=== PATIENT | female | born 1955 | race Caucasian/White ===

== ENCOUNTER → 2017-05-12 | Outpatient (CLI) | payer OTHER ==
[2017-05-13 10:24] LABS: BASOPHIL % 0.4 % (0-2); PLATELET COUNT 251 x10^3mcL (130-400)
[2017-05-13 10:45] LABS: ALBUMIN 3.5 g/dL (3.4-5.0); ALKALINE PHOSPHATASE 75 U/L (46-116); ALT/SGPT 31 U/L (14-59); AST/SGOT 24 U/L (15-37); BILIRUBIN TOTAL 0.47 mg/dL (0.20-1.00); CALCIUM 8.7 mg/dL (8.5-10.1); CARBON DIOXIDE 29.6 mmol/L (21-32); CHLORIDE SERUM 106 mmol/L (98-107); CREATININE SERUM 0.8 mg/dL (0.6-1.0); GFR1 > 60 mL/min; GLUCOSE SERUM 96 mg/dL (74-106); POTASSIUM SERUM 4.4 mmol/L (3.5-5.1); SODIUM SERUM 142 mmol/L (136-145); TOTAL PROTEIN, SERUM 7.5 g/dL (6.4-8.2); TRIGLYCERIDES 131 mg/dL (<150)
[2017-05-13 10:46] LABS: CHOLESTEROL 230 mg/dL (<200); CHOLESTEROL/HDL RATIO 3.8; HDL CHOLESTEROL 61 mg/dL (40-60)
== END | disposition home or self-care (01) ==
LOC: MA 12:41
PROVIDERS: Internal Medicine
PROC: BH02ZZZ Plain Radiography of Bilateral Breasts (ICD-10-PCS; principal; 2017-05-12)
DX: Z00.00 Encounter for general adult medical examination without abnormal findings (principal); Z12.31 Encounter for screening mammogram for malignant neoplasm of breast
CPT/HCPCS: G0202

== ENCOUNTER → 2017-06-17 | Outpatient (CLI) | payer OTHER | END | disposition home or self-care (01) | LOC: MA 12:54 | PROC: BH02ZZZ Plain Radiography of Bilateral Breasts (ICD-10-PCS; principal; 2017-06-17) | DX: R92.8 Other abnormal and inconclusive findings on diagnostic imaging of breast (principal) | CPT/HCPCS: G0206 ==

== ENCOUNTER 2017-07-18 06:30 | Day surgery (SDC) | payer OTHER ==
[~2017-07-18] VITALS: Ht 152.4 cm; Wt 59.9 kg
[2017-07-18 06:43] VITALS: BP 150/87
[2017-07-18 10:07] VITALS: BP 101/60
== END 2017-07-18 10:30 | disposition home or self-care (01) ==
LOC: GI 06:30 → OR 07:30 → GI 10:30
PROVIDERS: Internal Medicine Gastroenterology
PROC: 0DB58ZZ Excision of Esophagus, Via Natural or Artificial Opening Endoscopic (ICD-10-PCS; principal; 2017-07-18 07:30)
PROC: 0DB68ZX Excision of Stomach, Via Natural or Artificial Opening Endoscopic, Diagnostic (ICD-10-PCS; 2017-07-18 07:30)
PROC: 0DBH8ZZ Excision of Cecum, Via Natural or Artificial Opening Endoscopic (ICD-10-PCS; 2017-07-18 07:30)
DX: K21.0 Gastro-esophageal reflux disease with esophagitis (principal); K22.2 Esophageal obstruction; K44.9 Diaphragmatic hernia without obstruction or gangrene; R13.10 Dysphagia, unspecified; K25.4 Chronic or unspecified gastric ulcer with hemorrhage; K63.5 Polyp of colon; K64.8 Other hemorrhoids; Z68.25 Body mass index [BMI] 25.0-25.9, adult; Z12.11 Encounter for screening for malignant neoplasm of colon; Z80.0 Family history of malignant neoplasm of digestive organs
CPT/HCPCS: 43235; 45378; J1200; J1610; J2250; J2310; J3010; J3490

== ENCOUNTER 2018-03-06 08:37 | Emergency (ER) | payer OTHER ==
[~2018-03-06] VITALS: Ht 152.4 cm; Wt 59.6 kg
[2018-03-06 08:40] VITALS: Ht 152.4 cm; Wt 59.6 kg
[2018-03-06 09:13] LABS: BASOPHIL % 0.6 % (0-2); PLATELET COUNT 254 x10^3mcL (130-400); RED CELL DISTRIBUTION WIDTH 12.8 % (11.5-14.5)
[2018-03-06 09:24] LABS: CALCIUM 9.1 mg/dL (8.5-10.1); CARBON DIOXIDE 28.6 mmol/L (21-32); CHLORIDE SERUM 105 mmol/L (98-107); CREATININE SERUM 0.9 mg/dL (0.6-1.0); GFR1 > 60 mL/min; GLUCOSE SERUM 107 mg/dL (74-106); POTASSIUM SERUM 3.7 mmol/L (3.5-5.1); SODIUM SERUM 139 mmol/L (136-145)
[2018-03-06 09:29] LABS: ALBUMIN 3.6 g/dL (3.4-5.0); ALKALINE PHOSPHATASE 82 U/L (46-116); ALT/SGPT 33 U/L (14-59); AMYLASE 48 U/L (25-115); AST/SGOT 24 U/L (15-37); BILIRUBIN TOTAL 0.5 mg/dL (0.20-1.00); LIPASE 112 IU/L (73-393); TOTAL PROTEIN, SERUM 7.5 g/dL (6.4-8.2)
[2018-03-06 13:02] VITALS: BP 141/59
[2018-03-07] MEDS ORDERED: OMEPRAZOLE40 M1 PO (19:43)
[2018-03-07] MEDS ORDERED: ZOF4 PO (19:43)
[2018-03-07] MEDS ORDERED: EPZICOM1 TAB (19:43)
== END 2018-03-06 13:48 | disposition home or self-care (01) ==
LOC: ED 08:37
PROVIDERS: Specialist
DX: R10.11 Right upper quadrant pain (principal); R10.12 Left upper quadrant pain; K44.9 Diaphragmatic hernia without obstruction or gangrene; K21.9 Gastro-esophageal reflux disease without esophagitis
CPT/HCPCS: 36415; 83880; J7030; Q0092; Q0162; Q9967

== ENCOUNTER 2018-03-07 17:28 | Inpatient (IN) | payer OTHER ==
[~2018-03-07] VITALS: Ht 152.4 cm; Wt 60.4 kg
[2018-03-07 18:59] LABS: BASOPHIL % 0.3 % (0-2); PLATELET COUNT 263 x10^3mcL (130-400); RED CELL DISTRIBUTION WIDTH 12.9 % (11.5-14.5)
[2018-03-07 19:12] LABS: CARBON DIOXIDE 26.6 mmol/L (21-32); CHLORIDE SERUM 102 mmol/L (98-107); CREATININE SERUM 0.9 mg/dL (0.6-1.0); GFR1 > 60 mL/min; GLUCOSE SERUM 123 mg/dL (74-106); POTASSIUM SERUM 4.3 mmol/L (3.5-5.1); SODIUM SERUM 139 mmol/L (136-145)
[2018-03-07 19:17] LABS: ALBUMIN 3.5 g/dL (3.4-5.0); ALKALINE PHOSPHATASE 73 U/L (46-116); ALT/SGPT 27 U/L (14-59); AMYLASE 41 U/L (25-115); AST/SGOT 19 U/L (15-37); BILIRUBIN TOTAL 0.77 mg/dL (0.20-1.00); LIPASE 108 IU/L (73-393); TOTAL PROTEIN, SERUM 7.4 g/dL (6.4-8.2)
[2018-03-07] MEDS ORDERED: OMEPRAZOLE40 M1 PO (19:43)
[2018-03-07] MEDS ORDERED: ZOF4 PO (19:43)
[2018-03-07] MEDS ORDERED: EPZICOM1 TAB (19:43)
[2018-03-07 20:44] LABS: MAGNESIUM 2.7 mg/dL (1.8-2.4); PHOSPHOROUS 3.5 mg/dL (2.5-4.9)
[2018-03-07 20:52] LABS: CHOLESTEROL/HDL RATIO 3.8
[2018-03-07 21:10] LABS: FREE T4 0.75 ng/dL (0.76-1.46); FREE THYROXINE INDEX 1.7 ug/dL (1.4-4.5); T4(THYROXINE) 5.7 ug/dL (4.7-13.3)
[2018-03-07 21:20] VITALS: BP 131/74
[2018-03-08 00:06] LABS: microscopic required? YES; urine erythrocyte TRACE (NEGATIVE)
[2018-03-08 06:09] VITALS: BP 159/86
[2018-03-08 06:35] LABS: CALCIUM 7.8 mg/dL (8.5-10.1); CARBON DIOXIDE 25.5 mmol/L (21-32); CHLORIDE SERUM 106 mmol/L (98-107); CREATININE SERUM 0.7 mg/dL (0.6-1.0); GFR1 > 60 mL/min; GLUCOSE SERUM 97 mg/dL (74-106); MAGNESIUM 2.5 mg/dL (1.8-2.4); PHOSPHOROUS 3.4 mg/dL (2.5-4.9); POTASSIUM SERUM 3.8 mmol/L (3.5-5.1); SODIUM SERUM 138 mmol/L (136-145)
[2018-03-08 06:37] LABS: BASOPHIL % 0.1 % (0-2); PLATELET COUNT 224 x10^3mcL (130-400); RED CELL DISTRIBUTION WIDTH 13.1 % (11.5-14.5)
[2018-03-08 06:47] VITALS: BP 136/79
[2018-03-08 09:00] VITALS: BP 136/71
[2018-03-08 17:38] VITALS: BP 132/68
[2018-03-08 20:36] VITALS: BP 147/75
[2018-03-08 23:22] LABS: T3 TOTAL 0.88 ng/mL
[2018-03-09 06:31] LABS: CALCIUM 8.1 mg/dL (8.5-10.1); CARBON DIOXIDE 23.1 mmol/L (21-32); CHLORIDE SERUM 108 mmol/L (98-107); CREATININE SERUM 0.7 mg/dL (0.6-1.0); GLUCOSE SERUM 77 mg/dL (74-106); POTASSIUM SERUM 3.6 mmol/L (3.5-5.1); SODIUM SERUM 141 mmol/L (136-145)
[2018-03-09 06:40] LABS: BASOPHIL % 0.1 % (0-2); PLATELET COUNT 216 x10^3mcL (130-400); RED CELL DISTRIBUTION WIDTH 12.9 % (11.5-14.5)
[2018-03-09 09:14] VITALS: BP 133/72
[2018-03-09 13:15] VITALS: BP 126/65
[2018-03-09 17:33] VITALS: BP 124/71
[2018-03-09 21:30] VITALS: BP 138/74
[2018-03-10 05:48] VITALS: BP 136/75
[2018-03-10 06:14] LABS: BASOPHIL % 0.3 % (0-2); PLATELET COUNT 248 x10^3mcL (130-400); RED CELL DISTRIBUTION WIDTH 12.9 % (11.5-14.5)
[2018-03-10 06:33] LABS: ALKALINE PHOSPHATASE 57 U/L (46-116); ALT/SGPT 24 U/L (14-59); AST/SGOT 20 U/L (15-37); BILIRUBIN TOTAL 1.98 mg/dL (0.20-1.00); CALCIUM 8.2 mg/dL (8.5-10.1); CARBON DIOXIDE 17.7 mmol/L (21-32); CHLORIDE SERUM 105 mmol/L (98-107); MAGNESIUM 2.4 mg/dL (1.8-2.4); PHOSPHOROUS 3.7 mg/dL (2.5-4.9); POTASSIUM SERUM 3.4 mmol/L (3.5-5.1); SODIUM SERUM 140 mmol/L (136-145)
[2018-03-10 07:07] LABS: ALBUMIN 2.7 g/dL (3.4-5.0); TOTAL PROTEIN, SERUM 5.9 g/dL (6.4-8.2)
[2018-03-10 07:08] LABS: GLUCOSE SERUM 57 mg/dL (74-106)
[2018-03-10 09:29] VITALS: BP 134/65
[2018-03-10 09:45] LABS: CREATININE SERUM 0.6 mg/dL (0.6-1.0); GFR1 > 60 mL/min
[2018-03-10 12:19] VITALS: BP 129/71
[2018-03-10 16:28] VITALS: BP 135/60
[2018-03-10 19:41] VITALS: BP 116/84
[2018-03-10 21:41] VITALS: BP 136/75
[2018-03-11 06:09] VITALS: BP 149/71
[2018-03-11 06:43] LABS: BASOPHIL % 0.3 % (0-2); PLATELET COUNT 224 x10^3mcL (130-400)
[2018-03-11 06:52] LABS: CALCIUM 7.9 mg/dL (8.5-10.1); CARBON DIOXIDE 24.7 mmol/L (21-32); CHLORIDE SERUM 106 mmol/L (98-107); CREATININE SERUM 0.6 mg/dL (0.6-1.0); GFR1 > 60 mL/min; GLUCOSE SERUM 82 mg/dL (74-106); POTASSIUM SERUM 3.2 mmol/L (3.5-5.1); SODIUM SERUM 138 mmol/L (136-145)
[2018-03-11 09:39] VITALS: BP 144/70
[2018-03-11 13:12] VITALS: BP 126/78
[2018-03-11 16:14] VITALS: BP 126/62
[2018-03-11 21:21] VITALS: BP 132/62
[2018-03-12 05:43] VITALS: BP 134/78
[2018-03-12 06:10] LABS: BASOPHIL % 0.4 % (0-2); PLATELET COUNT 268 x10^3mcL (130-400); RED CELL DISTRIBUTION WIDTH 12.6 % (11.5-14.5)
[2018-03-12 06:23] LABS: CALCIUM 8.3 mg/dL (8.5-10.1); CARBON DIOXIDE 27.6 mmol/L (21-32); CHLORIDE SERUM 104 mmol/L (98-107); CREATININE SERUM 0.6 mg/dL (0.6-1.0); GFR1 > 60 mL/min; GLUCOSE SERUM 80 mg/dL (74-106); MAGNESIUM 2.1 mg/dL (1.8-2.4); PHOSPHOROUS 2.3 mg/dL (2.5-4.9); POTASSIUM SERUM 3.6 mmol/L (3.5-5.1); SODIUM SERUM 140 mmol/L (136-145)
[2018-03-12 09:51] VITALS: BP 125/69
[2018-03-12 18:43] VITALS: BP 137/74
[2018-03-12 20:35] VITALS: BP 131/62
[2018-03-13 05:59] VITALS: BP 128/59
[2018-03-13 06:50] LABS: BASOPHIL % 0.2 % (0-2); PLATELET COUNT 238 x10^3mcL (130-400); RED CELL DISTRIBUTION WIDTH 12.9 % (11.5-14.5)
[2018-03-13 06:56] LABS: CALCIUM 8.6 mg/dL (8.5-10.1); CARBON DIOXIDE 28.5 mmol/L (21-32); CHLORIDE SERUM 104 mmol/L (98-107); CREATININE SERUM 0.6 mg/dL (0.6-1.0); GFR1 > 60 mL/min; GLUCOSE SERUM 85 mg/dL (74-106); POTASSIUM SERUM 3.7 mmol/L (3.5-5.1); SODIUM SERUM 139 mmol/L (136-145)
[2018-03-13 09:44] VITALS: BP 121/60
[2018-03-13] MEDS ORDERED: LIPI10 PO (09:58)
[2018-03-13] MEDS ORDERED: TYL325 PO (09:59)
[2018-03-13] MEDS ORDERED: SIMETHICONE80 MG CH (09:59)
[2018-03-13] MEDS ORDERED: PRI20 PO (10:00)
[2018-03-13 10:12] VITALS: BP 121/60
[2018-03-13 18:27] VITALS: BP 111/71
[2018-03-13 20:17] VITALS: BP 127/60
[2018-03-14 05:27] LABS: BASOPHIL % 0.4 % (0-2); PLATELET COUNT 259 x10^3mcL (130-400); RED CELL DISTRIBUTION WIDTH 12.9 % (11.5-14.5)
[2018-03-14 05:31] LABS: CALCIUM 8.4 mg/dL (8.5-10.1); CARBON DIOXIDE 27.7 mmol/L (21-32); CHLORIDE SERUM 105 mmol/L (98-107); CREATININE SERUM 0.7 mg/dL (0.6-1.0); GFR1 > 60 mL/min; GLUCOSE SERUM 86 mg/dL (74-106); POTASSIUM SERUM 3.6 mmol/L (3.5-5.1); SODIUM SERUM 140 mmol/L (136-145)
[2018-03-14 05:41] VITALS: BP 114/56
[2018-03-14 09:27] VITALS: BP 117/73
[2018-03-14 17:13] VITALS: BP 141/62
[2018-03-14 20:56] VITALS: BP 112/69
[2018-03-15 05:59] VITALS: BP 147/73
[2018-03-15 09:17] VITALS: BP 137/78
[2018-03-15 16:39] VITALS: BP 134/82
[2018-03-15 17:15] VITALS: Ht 152.4 cm; Wt 60.4 kg
[2018-03-16 05:34] VITALS: BP 123/80
[2018-03-16 09:57] VITALS: BP 111/52
[2018-03-16 10:55] LABS: BASOPHIL % 0.3 % (0-2); PLATELET COUNT 273 x10^3mcL (130-400); RED CELL DISTRIBUTION WIDTH 13.1 % (11.5-14.5)
[2018-03-16 11:02] LABS: CARBON DIOXIDE 25.5 mmol/L (21-32); CHLORIDE SERUM 107 mmol/L (98-107); CREATININE SERUM 0.6 mg/dL (0.6-1.0); GFR1 > 60 mL/min; GLUCOSE SERUM 80 mg/dL (74-106); SODIUM SERUM 140 mmol/L (136-145)
[2018-03-16 18:34] VITALS: BP 132/74
[2018-03-16 21:25] VITALS: BP 128/66
[2018-03-17 05:36] VITALS: BP 124/64
[2018-03-17 06:42] LABS: CALCIUM 7.6 mg/dL (8.5-10.1); CARBON DIOXIDE 25.4 mmol/L (21-32); CHLORIDE SERUM 105 mmol/L (98-107); CREATININE SERUM 0.6 mg/dL (0.6-1.0); GFR1 > 60 mL/min; GLUCOSE SERUM 97 mg/dL (74-106); MAGNESIUM 2.1 mg/dL (1.8-2.4); PHOSPHOROUS 3.2 mg/dL (2.5-4.9); POTASSIUM SERUM 3.2 mmol/L (3.5-5.1); SODIUM SERUM 138 mmol/L (136-145)
[2018-03-17 07:13] LABS: BASOPHIL % 0.2 % (0-2); PLATELET COUNT 277 x10^3mcL (130-400); RED CELL DISTRIBUTION WIDTH 12.9 % (11.5-14.5)
[2018-03-17 17:36] VITALS: BP 135/80
[2018-03-17 20:33] VITALS: BP 120/61
[2018-03-18 05:30] VITALS: BP 101/59
[2018-03-18 06:14] LABS: BASOPHIL % 0.4 % (0-2); PLATELET COUNT 352 x10^3mcL (130-400); RED CELL DISTRIBUTION WIDTH 12.7 % (11.5-14.5)
[2018-03-18 06:52] LABS: CALCIUM 8.9 mg/dL (8.5-10.1); CARBON DIOXIDE 26.1 mmol/L (21-32); CHLORIDE SERUM 104 mmol/L (98-107); CREATININE SERUM 0.9 mg/dL (0.6-1.0); GFR1 > 60 mL/min; GLUCOSE SERUM 81 mg/dL (74-106); MAGNESIUM 2.1 mg/dL (1.8-2.4); PHOSPHOROUS 3.4 mg/dL (2.5-4.9); POTASSIUM SERUM 4.7 mmol/L (3.5-5.1); SODIUM SERUM 139 mmol/L (136-145)
[2018-03-18 09:42] VITALS: BP 99/56
[2018-03-18] MEDS ORDERED: ACETAMINOPHEN-H1 TA1 PO (11:20)
[2018-03-18 12:23] VITALS: BP 99/56
== END 2018-03-18 13:42 | disposition home or self-care (01) | DRG 335 ==
LOC: ED 17:28 → DU 20:15 → MU 20:15 → DU 21:12 → MU 03-12 09:57
PROVIDERS: Emergency Medicine; Family Medicine; Family Medicine Sports Medicine; Internal Medicine; Surgery
PROC: 0D9670Z Drainage of Stomach with Drainage Device, Via Natural or Artificial Opening (ICD-10-PCS; principal; 2018-03-09)
PROC: 0DN84ZZ Release Small Intestine, Percutaneous Endoscopic Approach (ICD-10-PCS; 2018-03-17)
DX: K91.31 Postprocedural partial intestinal obstruction (principal); E43 Unspecified severe protein-calorie malnutrition; N39.0 Urinary tract infection, site not specified; K21.9 Gastro-esophageal reflux disease without esophagitis; K44.9 Diaphragmatic hernia without obstruction or gangrene; E83.41 Hypermagnesemia; E78.5 Hyperlipidemia, unspecified; E87.8 Other disorders of electrolyte and fluid balance, not elsewhere classified; E02 Subclinical iodine-deficiency hypothyroidism; E66.3 Overweight; L90.5 Scar conditions and fibrosis of skin; Y83.8 Other surgical procedures as the cause of abnormal reaction of the patient, or of later complication, without mention of misadventure at the time of the procedure; Y92.89 Other specified places as the place of occurrence of the external cause; Z80.9 Family history of malignant neoplasm, unspecified; Z68.25 Body mass index [BMI] 25.0-25.9, adult
CPT/HCPCS: 83880; 84439; 94150; J0690; J1644; J1885; J1956; J2175; J2250; J2405; J2550; J3010; J3480; J3490; J7030; J7040; Q0092; Q9966; Q9967

== ENCOUNTER → 2018-04-14 | Outpatient (CLI) | payer OTHER ==
[~2018-04-14] MED LIST: ACETAMINOPHEN-H1 TA1 PO; EPZICOM1 TAB; LIPI10 PO; OMEPRAZOLE40 M1 PO; PRI20 PO; SIMETHICONE80 MG CH; TYL325 PO; ZOF4 PO
[2018-04-14 12:58] LABS: ALBUMIN 3.5 g/dL (3.4-5.0); ALKALINE PHOSPHATASE 74 U/L (46-116); ALT/SGPT 22 U/L (14-59); AST/SGOT 20 U/L (15-37); BILIRUBIN TOTAL 0.5 mg/dL (0.20-1.00); CALCIUM 8.4 mg/dL (8.5-10.1); CARBON DIOXIDE 25.8 mmol/L (21-32); CHLORIDE SERUM 105 mmol/L (98-107); CREATININE SERUM 0.7 mg/dL (0.6-1.0); GFR1 > 60 mL/min; GLUCOSE SERUM 87 mg/dL (74-106); POTASSIUM SERUM 3.8 mmol/L (3.5-5.1); SODIUM SERUM 141 mmol/L (136-145); TOTAL PROTEIN, SERUM 7.3 g/dL (6.4-8.2)
== END | disposition home or self-care (01) ==
LOC: RD 11:46
PROVIDERS: Internal Medicine
DX: N17.9 Acute kidney failure, unspecified (principal)

== ENCOUNTER → 2018-08-31 | Outpatient (CLI) | payer OTHER ==
[2018-08-31 10:11] LABS: BASOPHIL % 0.3 % (0-2); PLATELET COUNT 240 x10^3mcL (130-400); RED CELL DISTRIBUTION WIDTH 13.2 % (11.5-14.5)
[2018-08-31 10:21] LABS: ALBUMIN 3.4 g/dL (3.4-5.0); ALKALINE PHOSPHATASE 80 U/L (46-116); ALT/SGPT 28 U/L (14-59); AST/SGOT 22 U/L (15-37); BILIRUBIN DIRECT 0.08 mg/dL (0.0-0.2); BILIRUBIN TOTAL 0.38 mg/dL (0.20-1.00); CALCIUM 8.6 mg/dL (8.5-10.1); CARBON DIOXIDE 32.4 mmol/L (21-32); CHLORIDE SERUM 105 mmol/L (98-107); CREATININE SERUM 0.8 mg/dL (0.6-1.0); GFR1 > 60 mL/min; GLUCOSE SERUM 90 mg/dL (74-106); HDL CHOLESTEROL 56 mg/dL (40-60); POTASSIUM SERUM 4.2 mmol/L (3.5-5.1); SODIUM SERUM 140 mmol/L (136-145); TOTAL PROTEIN, SERUM 7.2 g/dL (6.4-8.2); TRIGLYCERIDES 107 mg/dL (<150)
[2018-08-31 10:25] LABS: CHOLESTEROL 231 mg/dL (<200); CHOLESTEROL/HDL RATIO 4.1
== END | disposition home or self-care (01) ==
LOC: LB 09:27
PROVIDERS: Internal Medicine
DX: Z00.00 Encounter for general adult medical examination without abnormal findings (principal)

== ENCOUNTER → 2018-12-26 | Outpatient (CLI) | payer OTHER ==
[2018-12-26 09:42] LABS: BASOPHIL % 0.3 % (0-2); PLATELET COUNT 239 x10^3mcL (130-400)
[2018-12-26 10:01] LABS: ALBUMIN 3.4 g/dL (3.4-5.0); ALKALINE PHOSPHATASE 76 U/L (46-116); ALT/SGPT 27 U/L (14-59); AST/SGOT 17 U/L (15-37); BILIRUBIN DIRECT 0.11 mg/dL (0.0-0.2); BILIRUBIN TOTAL 0.48 mg/dL (0.20-1.00); CALCIUM 8.4 mg/dL (8.5-10.1); CARBON DIOXIDE 32.4 mmol/L (21-32); CHLORIDE SERUM 104 mmol/L (98-107); CREATININE SERUM 0.7 mg/dL (0.6-1.0); GFR1 > 60 mL/min; GLUCOSE SERUM 94 mg/dL (74-106); HDL CHOLESTEROL 53 mg/dL (40-60); POTASSIUM SERUM 4.4 mmol/L (3.5-5.1); SODIUM SERUM 139 mmol/L (136-145); TRIGLYCERIDES 121 mg/dL (<150)
[2018-12-26 10:09] LABS: CHOLESTEROL 224 mg/dL (<200); CHOLESTEROL/HDL RATIO 4.2
[2018-12-27 13:19] LABS: microalbumin:creatinine ratio 3.2 (0.0-30.0)
== END | disposition home or self-care (01) ==
LOC: LB 08:54
PROVIDERS: Internal Medicine
DX: Z00.00 Encounter for general adult medical examination without abnormal findings (principal)

== ENCOUNTER → 2019-01-08 | Outpatient (CLI) | payer OTHER | END | disposition home or self-care (01) | LOC: LB 09:55 | DX: N39.0 Urinary tract infection, site not specified (principal) ==

== ENCOUNTER 2019-01-28 11:35 | Emergency (ER) | payer OTHER ==
[~2019-01-28] VITALS: Ht 152.4 cm; Wt 61.2 kg
[2019-01-28 11:43] VITALS: Ht 152.4 cm; Wt 61.2 kg
[2019-01-28 12:56] VITALS: BP 129/80
== END 2019-01-28 12:56 | disposition home or self-care (01) ==
LOC: ED 11:35
DX: S50.11XD Contusion of right forearm, subsequent encounter (principal); M25.512 Pain in left shoulder; M79.652 Pain in left thigh; M25.552 Pain in left hip; K21.9 Gastro-esophageal reflux disease without esophagitis; W01.0XXD Fall on same level from slipping, tripping and stumbling without subsequent striking against object, subsequent encounter

== ENCOUNTER → 2019-04-19 | Outpatient (CLI) | payer OTHER | END | disposition home or self-care (01) | LOC: MA 09:15 | PROC: BH02ZZZ Plain Radiography of Bilateral Breasts (ICD-10-PCS; principal; 2019-04-19) | DX: Z12.31 Encounter for screening mammogram for malignant neoplasm of breast (principal); M25.562 Pain in left knee; M25.561 Pain in right knee | CPT/HCPCS: 77067 ==

== ENCOUNTER → 2019-04-23 | Outpatient (CLI) | payer OTHER | END | disposition home or self-care (01) | LOC: MA 10:30 | PROC: BH01ZZZ Plain Radiography of Left Breast (ICD-10-PCS; principal; 2019-04-23) | DX: R92.8 Other abnormal and inconclusive findings on diagnostic imaging of breast (principal) | CPT/HCPCS: 77065 ==